=== PATIENT | male | born 1990 | race Caucasian/White ===

== ENCOUNTER 2023-11-20 15:46 | Emergency (ER) | payer SELFPAY ==
[2023-11-20 15:47] VITALS: BP 129/77
[2023-11-20 16:14] LABS: COVID-19 Antigen Negative (Negative)
--- NOTE | 2023-11-20 16:45 | ED.GENMED ---
History of Present Illness
<Jamel Beckham PA-C - Last Filed: 11/23/23 21:33>
General
Chief Complaint: Headache
Time Seen by Provider: 11/20/23 16:35
Travel History
Have you had any contact with someone who has COVID-19?: No
Do you have any symptoms of coronavirus? Fever > 100 degrees, chills, cough, shortness of breath, sore throat, loss of taste or smell, muscle aches, or headache?: Yes
Symptoms:: hadache
History of Present Illness
History of Present Illness:
Patient is a 33-year-old male with no reported chronic medical problems here today for evaluation of approximately 4 days of generalized bodyaches/malaise associated with fatigue, loss of appetite, decreased p.o. intake, and headache. Patient
initially noted vomiting the first day of symptoms but this has since resolved. No recurrent vomiting. No abdominal pain or diarrhea. Patient denies cough or sore throat. No visual changes. No dizziness. No focal weakness. No numbness or
tingling. No neck pain.
Review of Systems
<Jamel Beckham PA-C - Last Filed: 11/23/23 21:33>
Review of Systems
All Other Systems: ROS reviewed and negative except as documented in HPI and ROS
Phy Exam
<Jamel Beckham PA-C - Last Filed: 11/23/23 21:33>
Physical Exam
Physical Exam:
GENERAL: Alert , in no apparent distress
EYE: pupils equal and reactive to light, extraocular movements intact
NECK: Supple, no significant adenopathy. No rigidity. Full range of motion.
ENT: o/p clr, mmm.
CARDIAC: Regular rate and rhythm .
LUNGS: Clear breath sounds bilaterally, no acute respiratory distress, no wheezes/rales/rhonchi
ABDOMEN: Soft, without focal tenderness, no r/g, no cvat
NEUROLOGICAL: Alert and oriented, no focal neuro deficits, cranial nerves II through XII intact, moving all extremities
SKIN: Warm and dry, skin intact.
MUSCULOSKELETAL: No edema, well perfused.
PSYCH: Normal and appropriate interaction.
Course
<Jamel Beckham PA-C - Last Filed: 11/23/23 21:33>
Orders/Labs/Results
Orders:
Orders
11/20/23 15:55
COVID-19 Antigen Urgent
Source: Nasal Swab
11/20/23 16:43
0.9% Sodium Chloride 1000 ml [Nss] 1,000 ml IV BOLUS
Acetaminophen [Tylenol] 1,000 mg PO NOW STA
Diphenhydramine [Benadryl] 50 mg IV NOW STA
Ketorolac [Toradol] 15 mg IV NOW STA
Metoclopramide [Reglan] 10 mg IV NOW STA
11/20/23 16:54
Complete Blood Count/With Diff Urgent
Comprehensive Metabolic Panel Urgent
Magnesium Urgent
Phosphorus Urgent
Influenza A+B Rapid Molecular Urgent
DIMPLE Source: Nasal Swab
Specimen Description:
Abnormal Lab Results
11/20/23
16:54
RBC 4.52 L 10^6/uL
(4.70-6.10)
MCV 100.4 H fL
(80.0-94.0)
MCH 34.3 H pg
(27.0-31.0)
Absolute Neuts (auto) 8.2 H 10^3/uL
(1.4-6.5)
Absolute Lymphs (auto) 0.8 L 10^3/uL
(1.2-3.4)
Absolute Monos (auto) 0.8 H 10^3/uL
(0.1-0.6)
Neutrophils % 83.3 H %
(42.2-75.2)
Lymphocytes % 8.0 L %
(20.5-51.1)
Sodium 132 L mmol/L
(135-145)
Glucose 129 H mg/dl
(70-99)
Total Bilirubin 1.8 H mg/dl
(0.2-1.3)
11/20/23 16:54
11/20/23 16:54
Vital Signs
Initial and Last Documented VS:
Initial Vital Signs
Temp Pulse Resp BP Pulse Ox
98.8 F 72 16 129/77 100
11/20/23 15:47 11/20/23 15:47 11/20/23 15:47 11/20/23 15:47 11/20/23 15:47
Last Documented Vital Signs
Temp Pulse Resp BP Pulse Ox
98.8 F 70 17 125/72 99
11/20/23 15:47 11/20/23 19:24 11/20/23 19:24 11/20/23 19:24 11/20/23 19:24
<MARYA Powell - Last Filed: 11/20/23 19:24>
Orders/Labs/Results
Orders:
Orders
11/20/23 15:55
COVID-19 Antigen Urgent
Source: Nasal Swab
11/20/23 16:43
0.9% Sodium Chloride 1000 ml [Nss] 1,000 ml IV BOLUS
Acetaminophen [Tylenol] 1,000 mg PO NOW STA
Diphenhydramine [Benadryl] 50 mg IV NOW STA
Ketorolac [Toradol] 15 mg IV NOW STA
Metoclopramide [Reglan] 10 mg IV NOW STA
11/20/23 16:54
Complete Blood Count/With Diff Urgent
Comprehensive Metabolic Panel Urgent
Magnesium Urgent
Phosphorus Urgent
Influenza A+B Rapid Molecular Urgent
DIMPLE Source: Nasal Swab
Specimen Description:
Abnormal Lab Results
11/20/23
16:54
RBC 4.52 L 10^6/uL
(4.70-6.10)
MCV 100.4 H fL
(80.0-94.0)
MCH 34.3 H pg
(27.0-31.0)
Absolute Neuts (auto) 8.2 H 10^3/uL
(1.4-6.5)
Absolute Lymphs (auto) 0.8 L 10^3/uL
(1.2-3.4)
Absolute Monos (auto) 0.8 H 10^3/uL
(0.1-0.6)
Neutrophils % 83.3 H %
(42.2-75.2)
Lymphocytes % 8.0 L %
(20.5-51.1)
Sodium 132 L mmol/L
(135-145)
Glucose 129 H mg/dl
(70-99)
Total Bilirubin 1.8 H mg/dl
(0.2-1.3)
11/20/23 16:54
11/20/23 16:54
Vital Signs
Initial and Last Documented VS:
Initial Vital Signs
Temp Pulse Resp BP Pulse Ox
98.8 F 72 16 129/77 100
11/20/23 15:47 11/20/23 15:47 11/20/23 15:47 11/20/23 15:47 11/20/23 15:47
Last Documented Vital Signs
Temp Pulse Resp BP Pulse Ox
98.8 F 70 17 125/72 99
11/20/23 15:47 11/20/23 19:24 11/20/23 19:24 11/20/23 19:24 11/20/23 19:24
<Jamel Beckham PA-C - Last Filed: 11/23/23 21:33>
MDM/Problems Addressed
Differential Diagnosis Includes:
Patient is a 33-year-old male with no reported chronic medical problems here today for evaluation of approximately 4 days of generalized bodyaches/malaise associated with fatigue, loss of appetite, decreased p.o. intake, and headache. Overall,
patient appears very well. Vital signs grossly within normal limits. Physical examination described above. Patient is neurologically intact without acute focal deficits appreciated. There is no meningismus noted. Do not suspect meningitis. No
noted fevers. Symptoms/findings consistent with viral syndrome. Will initiate viral testing and obtain screening labs to assess for dehydration/electrolyte abnormality. Will provide IV fluids and give analgesia with Tylenol and Toradol. Will
provide Reglan and Benadryl for migraine cocktail. Will monitor and reassess.
<MARYA Powell - Last Filed: 11/20/23 19:24>
MDM/Problems Addressed
Differential Diagnosis Includes:
Patient is a 33-year-old male with no reported chronic medical problems here today for evaluation of approximately 4 days of generalized body aches/malaise associated with fatigue, loss of appetite, decreased p.o. intake, and headache. Overall,
patient appears very well. Vital signs grossly within normal limits. Physical examination described above. Patient is neurologically intact without acute focal deficits appreciated. There is no meningismus noted. Do not suspect meningitis. No
noted fevers. Symptoms/findings consistent with viral syndrome. Will initiate viral testing and obtain screening labs to assess for dehydration/electrolyte abnormality. Will provide IV fluids and give analgesia with Tylenol and Toradol. Will
provide Reglan and Benadryl for migraine cocktail. Will monitor and reassess.
Back into see patient. States that he is feeling better and is ready to go home. Encouraged patient to increase his water intake and alternate with Tylenol and Ibuprofen for pain. Follow up with the Family doctor. Return with any concerns.
<MARYA Powell - Last Filed: 11/20/23 19:24>
*Critical Care Note
Total Time (30-74mins, 75-104mins- exclusive of procedures): Not Applicable
ED Attending Note
<Jamel Beckham PA-C - Last Filed: 05/10/24 21:33>
-
Portions of this chart may have been created with voice recognition software.� Occasional wrong word or��sound alike� substitutions may have occurred due to the inherent limitations of voice recognition software.
Discharge Plan
Departure
Patient Disposition: Home (Routine Discharge)
Date of Disposition: 11/20/23
Time of Disposition: 19:23
Patient with high blood pressure during this ER visit?: No
Condition: Good
Covid-19: Negative COVID-19
Discharge Problem:
Acute viral syndrome, Headache, Fatigue
Instructions: Headache, Adult (DC)
Referrals:
NONE,* [Family Provider] -
Activity Restrictions/Additional Instructions:
You were seen today for evaluation in the emergency department.
Your workup reveals an elevated MCV level (mean corpuscular volume). Your sodium level is mildly decreased at 132. Your glucose is mildly elevated at 129. Your total bilirubin is mildly elevated at 1.8.
Your COVID�19 and influenza testing are negative.
Your symptoms today are likely secondary to a viral infection.
Please rest over the next couple of days. Drink plenty of fluids. You may take [id number] Tylenol and ibuprofen as directed as needed for pain.
Please follow-up with your doctor within the next 3 to 5 days for close reevaluation. We recommend repeating your blood work with your doctor once you are feeling better.
Return for any new, worsening, or concerning symptoms.
Interventions
Interventions:
*Risk Screen - Suicide Last Done: 11/20/23 15:50
*Neglect/Abuse Screening Last Done: 11/20/23 15:50
ED- Fall Risk Assessment Last Done: 11/20/23 16:40
*ED COVID-19 Vaccine History Last Done: 11/20/23 15:50
*Nursing Disposition Last Done: 11/20/23 19:38
ED- Neurological Assessment Last Done: 11/20/23 16:40
Discharge Date and Time
Discharge Date/Time: 11/20/23 19:39
Print Language: SLOVENIAN
[2023-11-20 17:05] LABS: % Basophils 0.4 % (0-2); % Eosinophils 0.1 % (0-6); % Immature Granulocytes 0.3 % (0-0.5); % Monocytes 7.9 % (1.7-9.3); % Neutrophils 83.3 % (42.2-75.2); Absolute Lymphocytes 0.8 10^3/uL (1.2-3.4); Absolute Monocytes 0.8 10^3/uL (0.1-0.6); Absolute Neutrophils 8.2 10^3/uL (1.4-6.5); Hematocrit 45.4 % (39.0-52.0); Hemoglobin 15.5 g/dL (13.0-18.0); Mean Corp Hgb Conc. 34.1 g/dL (33.0-37.0); Mean Corpuscular Hgb 34.3 pg (27.0-31.0); Mean Corpuscular Volume 100.4 fL (80.0-94.0); Mean Platelet Volume 9.5 fL (7.4-10.4); Nucleated Red Blood Cells % 0 % (-); Platelet Count 211 10^3/uL (130-400); Red Blood Cell Count 4.52 10^6/uL (4.70-6.10); Red Cell Dist. Width 11.6 % (11.5-14.5); White Blood Cell Count 9.8 10^3/uL (4.8-10.8)
[2023-11-20] MEDS: TORADOL 15 MG IV (17:20)
[2023-11-20] MEDS: BENADRYL 50 MG IV (17:20)
[2023-11-20] MEDS: NSS 1000 IV (17:20)
[2023-11-20] MEDS: TYLENOL 1000 MG PO (17:21)
[2023-11-20] MEDS: REGLAN 10 MG IV (17:21)
[2023-11-20 17:28] LABS: ALT (SGPT) 19 U/L (0-50); AST (SGOT) 24 U/L (17-59); Albumin 4.6 g/dl (3.5-5.0); Alkaline Phosphatase 46 U/L (38-126); Blood Urea Nitrogen 11 mg/dl (9-20); Carbon Dioxide 23 mmol/L (22-30); Chloride 101 mmol/L (98-107); Glucose 129 mg/dl (70-99); Magnesium 1.9 mg/dl (1.6-2.3); Phosphorus 2.9 mg/dl (2.5-4.5); Potassium 4.4 mmol/L (3.5-5.1); Sodium 132 mmol/L (135-145); Total Bilirubin 1.8 mg/dl (0.2-1.3); Total Protein 7.2 g/dl (6.3-8.2); eGFR > 60.00
[2023-11-20 19:24] VITALS: BP 125/72
== END 2023-11-20 19:39 | disposition home or self-care (01) ==
LOC: EMR 15:46
PROVIDERS: Emergency Medicine; Physician Assistant; EMERGENCY PHYSICIAN Emergency Medicine
DX: B34.9 Viral infection, unspecified (principal); Z11.52 Encounter for screening for COVID-19
CPT/HCPCS: 99284; 96374; 96375 ×2; 96361; 80053; 83735; 84100; 85025; 87502; 87811

== ENCOUNTER → 2024-01-16 10:51 | Outpatient (REF) | payer SELFPAY ==
[2024-01-18 09:45] LABS: Lyme Antibody Screen, EIA Negative (Negative)
== END ==
LOC: REG 10:51
PROVIDERS: ATTENDING PHYSICIAN Internal Medicine Cardiovascular Disease; FAMILY PHYSICIAN Internal Medicine
DX: G62.9 Polyneuropathy, unspecified (principal)
CPT/HCPCS: 36415; 86618